=== PATIENT | male | born 2000 | race Caucasian/White ===

== ENCOUNTER 2024-02-02 01:25 | Emergency (ER) | payer BC, MEDICAID, OTHER ==
[~2024-02-02] VITALS: Ht 167.6 cm; Wt 55.0 kg
[2024-02-02 01:47] VITALS: RESP 16; O2SAT 98
[2024-02-02] MEDS ORDERED: KETOROLAC 30MG/ML VIAL IM SCH (02:40)
[2024-02-02 06:18] VITALS: BP 111/54; PULSE 57; TEMP 97.7
== END 2024-02-02 06:10 | disposition home or self-care (01) ==
LOC: ER 01:25
DX: M54.9 Dorsalgia, unspecified (principal); V49.40XA Driver injured in collision with unspecified motor vehicles in traffic accident, initial encounter; Y93.89 Activity, other specified; Y92.89 Other specified places as the place of occurrence of the external cause; Y99.8 Other external cause status
CPT/HCPCS: 72070; 72100; 99284

== ENCOUNTER 2024-02-08 05:28 | Emergency (ER) | payer OTHER ==
[~2024-02-08] VITALS: Ht 180.3 cm; Wt 75.0 kg
[2024-02-08 05:32] VITALS: O2SAT 99
[2024-02-08] MEDS: ONDANSETRON HCL 4MG/2ML INJ IV STA (06:37)
[2024-02-08] MEDS: SODIUM CHLORIDE 0.9% 1,000 ML IV ONE ×3 (06:37→10:43)
[2024-02-08] MEDS ORDERED: KETOROLAC 30MG/ML VIAL IV STA (07:00)
[2024-02-08 07:03] LABS: HEMOGLOBIN. 14.5 g/dL (14.0-18.0); MEAN CORPUSCULAR HEMOGLOBIN 30.2 pg (28.0-32.0); MEAN CORPUSCULAR HGB CONC 33.9 g/dL (31.0-37.0); MEAN CORPUSCULAR VOLUME 89.2 fL (80.0-94.0); PLATELET 292 x1000/uL (130-400); RED BLOOD CELL COUNT 4.82 mill/uL (4.7-6.1); RED CELL DISTRIBUTION WIDTH 13.5 % (11.6-14.6); WHITE BLOOD COUNT 14.6 x1000/uL (4.5-11.0)
[2024-02-08 07:06] LABS: DIFFERENTIAL COMMENT 1
[2024-02-08 07:16] LABS: PROTHROMBIN TIME 11.4 sec (9.6-11.0)
[2024-02-08 07:49] LABS: CLARITY URINE CLEAR (CLEAR); COLOR URINE YELLOW (YELLOW); GLUCOSE URINE NEGATIVE (NEGATIVE); KETONES URINE NEGATIVE (NEGATIVE); LEUKOCYTE ESTERASE URINE NEGATIVE (NEGATIVE); NITRITE URINE NEGATIVE (NEGATIVE); OCCULT BLOOD URINE NEGATIVE (NEGATIVE); PH URINE 6.5 (4.5-8.0); PROTEIN URINE NEGATIVE (NEGATIVE); UROBILINOGEN URINE 0.2 E.U./dL (0.2-1.0)
[2024-02-08 07:54] VITALS: TEMP 99.3
[2024-02-08 07:54] LABS: ALANINE AMINOTRANSFERASE 45 IU/L (10-49); ALBUMIN 4.5 g/dL (3.2-4.8); ASPARTATE AMINOTRANSFERASE 33 IU/L (<34); BILIRUBIN TOTAL 0.9 mg/dL (0.1-1.0); CALCIUM 8.8 mg/dL (8.7-10.4); CARBON DIOXIDE 22 mEq/L (21-32); CHLORIDE 106 mEq/L (98-107); CREATININE 0.8 mg/dL (0.6-1.3); GLUCOSE 133 mg/dL (70-105); POTASSIUM 3.9 mEq/L (3.5-5.1); SODIUM 139 mEq/L (136-145); UREA NITROGEN BLOOD 14 mg/dL (9-23)
[2024-02-08 09:09] LABS: PLATELET ESTIMATE NORMAL
[2024-02-08] MEDS: VANCOMYCIN 1G PREMIX 200 ML IV ONE (10:43)
[2024-02-08] MEDS: SODIUM CHLORIDE 0.9% 1000ML BAG (SEPSIS BOLUS) IV ONE (10:43)
[2024-02-08] MEDS: KETOROLAC 30MG/ML VIAL IV NR (10:43)
[2024-02-08] MEDS: PIPERACILLIN/TAZO 3.375G/50ML 50 ML IV ONE (10:44)
[2024-02-08 11:25] LABS: LACTIC ACID 2.7 mmol/L (0.4-2.0)
[2024-02-08 14:51] VITALS: BP 107/66; PULSE 89; RESP 16
== END 2024-02-08 15:09 | disposition short-term general hospital (02) ==
LOC: ER 05:28 → CANBEDREQ 12:16 → ER 15:09
DX: A41.9 Sepsis, unspecified organism (principal); R65.20 Severe sepsis without septic shock; R11.2 Nausea with vomiting, unspecified; Z98.890 Other specified postprocedural states
CPT/HCPCS: 80053; 81003; 83605; 83690; 85025; 85610; 87040; 87086; 36415; 74176; 96368; 96361; 96365; 96375; 99291; J1885; J2405; J2543; J3370; J7030; Z7610 ×3